=== PATIENT | female | born 1945 | race Caucasian/White ===

== ENCOUNTER → 2024-08-24 11:05 | Outpatient (BNVA) | payer MEDICARE, SELFPAY | PROVIDERS: Visit Provider Nurse Practitioner Family | DX: L57.0 Actinic keratosis (principal); L82.0 Inflamed seborrheic keratosis; L57.8 Other skin changes due to chronic exposure to nonionizing radiation | CPT/HCPCS: 17000; 17110; 99203 ==

== ENCOUNTER → 2025-04-13 14:04 | Outpatient (BNVA) | payer MEDICARE, SELFPAY | PROVIDERS: Visit Provider Nurse Practitioner Family | DX: L57.8 Other skin changes due to chronic exposure to nonionizing radiation (principal); L81.4 Other melanin hyperpigmentation; D22.39 Melanocytic nevi of other parts of face; L57.0 Actinic keratosis | CPT/HCPCS: 17000; 99213 ==

== ENCOUNTER 2025-07-27 08:54 | Emergency (ER) | payer MEDICARE, SELFPAY ==
[2025-07-27 09:13] VITALS: BP 160/85; PULSE 74; RESP 16; TEMP 36.4; O2SAT 99
--- OUTSIDE RECORDS SUMMARY | 2025-07-27 09:46 | XMS_ITS | Clinical Summary ---
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 Name Role Phone Unavailable Primary Care Provider Unavailabl e Encounters Date Type Department Care Team Description 07/13/2025 External Device Data [facility] ABSTRACTION Provider, Abstract 06/30/2025 External Device Data [facility] Provider, Abstract 06/16/2025 External Device Data [facility]CTION Provider, Abstract 05/26/2025 External Device Data [facility] AB[facility]CTION Provider, Abstract 05/26/2025 External Device Data [facility] ABSTRACTION Provider, Abstract 05/26/2025 External Device Data [facility] ABSTRACTION Provider, Abstract 04/28/2025 External Device Data [facility] ABSTRACTION Provider, Abstract 04/27/2025 External Device Data [facility] ABSTRACTION Provider, Abstract from Last 3 Months Social History Tobacco Use Types Packs/Day Years Used Date Smoking Tobacco: Never Assessed Comments Unknown Sex and Gender Information Value Date Recorded Sex Assigned at Not on file 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
[2025-07-27 09:53] LABS: Hematocrit 38.2 % (36-47); Hemoglobin 11.90 g/dL (11.27-16.99); Mean Corpuscular HGB Conc 31.2 g/dL (30-55); Mean Corpuscular Hemoglobin 30.7 pg (27-33); Mean Corpuscular Volume 98.5 fl (85-98); Nucleated Red Blood Cells % 0 %; Platelet Count 272 10^3/cmm (157-399); Red Blood Count 3.88 10^6/uL (3.85-5.65); White Blood Count 5.95 10^3/uL (3.29-11.43)
[2025-07-27 10:25] LABS: Alanine Aminotransferase 10 U/L (0-33); Albumin Level 4.3 g/dL (3.5-5.2); Alkaline Phosphatase 74 U/L (35-105); Anion Gap 20.3 (5-19); Aspartate Amino Transferase 17 U/L (0-32); Blood Urea Nitrogen 29 mg/dL (8-23); Calcium 9.9 mg/dL (8.5-10.5); Carbon Dioxide 21 mmol/L (22-29); Chloride 104 mmol/L (98-107); Globulin 3.4 g/dL (1.3-4.6); Glucose 131 mg/dL (65-115); Lipase 22 U/L (13-60); Osmolality Calculated 300 mOsm/kg (285-295); Potassium 4.3 mmol/L (3.5-5.1); Sodium 141 mmol/L (136-145); Total Protein 7.7 g/dL (6.6-8.7)
--- NOTE | 2025-07-27 12:51 | CT_ITS ---
WS: [id number] CT ABDOMEN AND PELVIS WITH CONTRAST HISTORY: llq pain r/o diverticulitis TECHNIQUE: Imaging performed of the abdomen and pelvis with IV contrast. Single phase imaging of the abdomen. Coronal and sagittal reformats are submitted. All CT scans at [facility] use at least one of these dose optimization techniques: automated exposure control; mA and/or kV adjustment per patient size (includes targeted exams where dose is matched to clinical indication); or iterative reconstruction. IV CONTRAST: Omnipaque 350; 100 mL IV. Oral contrast: No DLP: 707.91 mGy.cm COMPARISON: None available. Lower thorax: Lung bases are clear. Heart is normal size. Small hiatal hernia. Liver/biliary system: Normal size liver. Very mild central bile duct dilatation. Normal portal vein. Gallbladder: Prior cholecystectomy. Pancreas: Diffuse mild to moderate atrophy of the pancreas. Pancreatic duct is dilated to 7 mm which is normal postcholecystectomy. Spleen: Normal size spleen. No mass or infarct. Adrenal glands: Normal. Right kidney: 9.3 cm in length. Mild diffuse cortical thinning with no obstruction or mass. Left kidney: Mild renal atrophy 7.8 cm in length. Diffuse cortical thinning. No obstruction or mass. Aorta: Mild atherosclerosis with no aneurysm. Lymphadenopathy: None. Free fluid: None. GI tract: Postsurgical changes near the GE junction. No small bowel obstruction. Prior appendectomy. No colon obstruction. Mild sigmoid diverticulosis. There is a loop of descending colon extending through a defect in the aponeurosis of the transverse abdominal and internal oblique muscles. There is an intact aponeurosis of the external Bleich muscle covering the hernia sac. Within this hernia sac which is lateral to the rectus abdominous muscle is a herniating loop of 6 descending colon with fat stranding and hyperemia. Hernia segment extends over a length of 6.5 cm. The orifice is 1.8 cm. No proximal obstruction. Abdominal wall: See above. Pelvis: No free fluid or adenopathy within the pelvis. Prior hysterectomy. Bones: L4 anterolisthesis by 3 mm. Facet joint arthropathy at L4-5 and L5-S1. T12 30% compression fracture with 2 mm retropulsion. Age indeterminate fracture. CT/CT abdomen pelvis w con* [id number] IMPRESSION: 1. LEFT lower quadrant Spigelian hernia. Spigelian hernia contains omentum and a loop of colon. There is fat stranding within the hernia sac which is contain ed by the external oblique aponeurosis. 2. Mild hyperemia involving the loop of colon extending into the Spigelian her [place] along with fat stranding and edema. No proximal obstruction at this time. T here is still enhancement of the colonic wall. Recommend surgical evaluation at this time. 3. Cortical atrophy of each kidney with mild overall atrophy of the LEFT kidne y. 4. Prior cholecystectomy. 5. Prior hysterectomy. 6. Age-indeterminate 30% compression fracture T12.
[2025-07-27] MEDS: iohexol 350 mg/mL 500 mL Btl (per mL) IV (13:03)
[2025-07-27] MEDS: morphine 4 mg/mL SDV 1 mL IVP (13:44)
[2025-07-27] MEDS: ondansetron 2 mg/ML SDV 2 mL 4 MG IVP (13:45)
[2025-07-27 13:57] VITALS: PULSE 84; RESP 16; O2SAT 99
[2025-07-27 14:09] LABS: Glucose Urine UA Negative (Normal); Nitrate Urine Negative (Negative); Specific Gravity, Urine 1.023 (1.005-1.030)
[2025-07-27 14:11] LABS: Add Urine Microscopic? YES
--- NOTE | 2025-07-27 14:32 | W.ED.ABDPA2 ---
HPI - Abdominal Pain General: Chief Complaint: Abdominal Pain Stated Complaint: Lower Left abd pain Time Seen by Provider: 07/27/25 08:58 History of Present Illness: 80-year-old female history of hysterectomy in the past, history of nonspecific constipation/diarrhea treated with Linzess for suspected IBS after colonoscopy normal 1 year ago, presenting with 1 day history of left lower quadrant abdominal pain since last night, she has had intermittent left lower quadrant abdominal pain on and off times a month but has been more constant and severe over the last day, she reports nausea but no vomiting, she reports intermittent constipation and diarrhea over the last month which is more of a chronic issue for her, she has been passing flatus, she denies fever, denies urinary symptoms, denies history of kidney stone, she does not report some pain to the left flank and back as well. She denies burning dysuria frequency urgency or hematuria, denies abnormal vaginal discharge or bleeding Related Data Previous Rx's ?Medication ?Instructions ?Recorded famotidine 20 mg tablet (Pepcid) 20 mg PO BID 15 days #30 tabs 07/27/25 ibuprofen 600 mg tablet 600 mg PO Q6H PRN pain #30 tabs 07/27/25 polyethylene glycol 3350 17 gram 17 g PO DAILY 21 days #21 ea 07/27/25 oral powder packet (Miralax) Allergies Allergy/AdvReac Type Severity Reaction Status Date / Time No Known Allergies Allergy Verified 07/27/25 09:13 [facility] ED PFSH: Social History Smoking and tobacco/nicotine status: former use of tobacco/nicotine Physical Exam Narrative: EXAM NARRATIVE: Gen: A&Ox4, no acute distress, nontoxic appearing HEENT: Normocephalic, atraumatic, no scleral icterus, external ears normal, moist mucous membranes Neck: Supple, full range of motion, no observable masses Lungs: No Respiratory distress, Lungs clear to auscultation bilaterally no rales, rhonchi, wheezing CV: Regular rate and rhythm, no murmur, no pitting edema to lower extremities bilaterally Abdomen: Soft, nondistended, tender to palpation in the left lower quadrant with a small palpable mass, no overlying skin changes, irreducible MSK: No joint swelling, FROM all 4 extremities Skin: No rashes, petechiae, lesions. Normal color per patient. Neuro: Alert and oriented, no slurred speech, sensation and strength grossly intact all 4 extremities Psych: Appropriate for situation. Course Reevaluation(s): Reevaluation #1: I reassessed the patient after CT confirmed presence of an incarcerated spigelian hernia, I did attempt to manually reduce the hernia with direct palpation after analgesia, unsuccessful. Patient is tender to the region Time: 14:38 Reevaluation #2: Patient seen personally by general surgery attending, they were offered the option for admission for urgent hernia repair, at this time after speaking with their family they have elected to proceed with outpatient management, the surgeons office reports that they will refer her to a surgeon in [place] per her request and if that does not work they will personally set her up with an appointment to be seen in their clinic here locally. Patient is currently hemodynamically stable without evidence of bowel obstruction, stable for discharge on a stool softener and MiraLAX daily after discussion with general surgery. Time: 15:24 Consultations: Consultation #1: I spoke with Dr. Zhu of general surgery, he will come see the patient in the emergency department and provide recommendations. Time: 14:32 Vital Signs: Vital signs: Vital Signs Temperature 97.6 F 07/27/25 09:13 Pulse Rate 84 07/27/25 13:57 Respiratory Rate 16 07/27/25 13:57 Blood Pressure 160/85 07/27/25 09:13 Pulse Oximetry 99 07/27/25 13:57 Oxygen Delivery Me thod Room Air 07/27/25 13:57 MDM - Abdominal Pain Medical Decision Making 80-year-old female, history of nonspecific bowel symptoms treated for possible IBS, last colonoscopy a year ago, remote surgical history of a hysterectomy with a midline vertical lower abdominal incisional scar, presenting with 1 month history of intermittent/alternating constipation and diarrhea, intermittent left lower quadrant abdominal pain, constant and more severe over the last day, physical exam suggestive of an incarcerated hernia to the abdominal wall, confirmed on CT, no diverticulitis, no upstream bowel obstruction, clinically well-appearing, manual reduction attempt failed, general surgery consulted, reassess for disposition. Lab Data Labs with borderline creatinine 1.4, normal electrolytes, no leukocytosis or anemia, no UTI, lactate normal 07/27/25 09:33 07/27/25 09:33 Labs/Radiology: Radiology Impressions Abdomen/Pelvis CT 07/27/25 12:51 IMPRESSION: 1. LEFT lower quadrant Spigelian hernia. Spigelian hernia contains omentum and a loop of colon. There is fat stranding within the hernia sac which is contained by the external oblique aponeurosis. 2. Mild hyperemia involving the loop of colon extending into the Spigelian hernia along with fat stranding and edema. No proximal obstruction at this time. There is still enhancement of the colonic wall. Recommend surgical evaluation at this time. 3. Cortical atrophy of each kidney with mild overall atrophy of the LEFT kidney. 4. Prior cholecystectomy. 5. Prior hysterectomy. 6. Age-indeterminate 30% compression fracture T12. Laboratory Results WBC 5.95 10^3/uL (3.29-11.43) 07/27/25 09:33 RBC 3.88 10^6/uL (3.85-5.65) 07/27/25 09:33 Hgb 11.90 g/dL (11.27-16.99) 07/27/25 09:33 Hct 38.2 % (36-47) 07/27/25 09:33 MCV 98.5 fl (85-98) H 07/27/25 09:33 MCH 30.7 pg (27-33) 07/27/25 09:33 MCHC 31.2 g/dL (30-55) 07/27/25 09:33 RDW 13.9 % (12.1-15.1) 07/27/25 09:33 Plt Count 272 10^3/cmm (157-399) 07/27/25 09:33 MPV 9.1 fL (7.4-10.4) 07/27/25 09:33 Neut % (Auto) 64.0 % 07/27/25 09:33 Lymph % (Auto) 23.9 % 07/27/25 09:33 Vernon % (Auto) 8.1 % 07/27/25 09:33 Eos % (Auto) 3.0 % 07/27/25 09:33 Baso % (Auto) 0.7 % 07/27/25 09:33 Neut # (Auto) 3.81 10^3/uL (1.8-7.7) 07/27/25 09:33 Lymph # (Auto) 1.4 10^3/uL (0.8-4.8) 07/27/25 09:33 Vernon # (Auto) 0.5 10^3/uL (0.2-0.9) 07/27/25 09:33 Eos # (Auto) 0.2 10^3/uL (0.0-0.8) 07/27/25 09:33 Baso # (Auto) 0.0 10^3/uL (0.0-0.1) 07/27/25 09:33 Nucleated RBC % (auto) 0 % 07/27/25 09:33 Nucleated RBCs # 0.0 /100WBC 07/27/25 09:33 Sodium 141 mmol/L (136-145) 07/27/25 09:33 Potassium 4.3 mmol/L (3.5-5.1) 07/27/25 09:33 Chloride 104 mmol/L (98-107) 07/27/25 09:33 Carbon Dioxide 21 mmol/L (22-29) L 07/27/25 09:33 Anion Gap 20.3 (5-19) H 07/27/25 09:33 BUN 29 mg/dL (8-23) H 07/27/25 09:33 Creatinine 1.4 mg/dL (0.5-0.9) H 07/27/25 09:33 GFR Calculation Not Reportable 07/27/25 09:33 Glucose 131 mg/dL (65-115) H 07/27/25 09:33 Calculated Osmolality 300 mOsm/kg (285-295) H 07/27/25 09:33 Lactic Acid 0.6 mmol/L (0.5-2.2) 07/27/25 14:14 Calcium 9.9 mg/dL (8.5-10.5) 07/27/25 09:33 Total Bilirubin 0.3 mg/dL (0.15-1.2) 07/27/25 09:33 AST 17 U/L (0-32) 07/27/25 09:33 ALT 10 U/L (0-33) 07/27/25 09:33 Alkaline Phosphatase 74 U/L (35-105) 07/27/25 09:33 Total Protein 7.7 g/dL (6.6-8.7) 07/27/25 09:33 Albumin 4.3 g/dL (3.5-5.2) 07/27/25 09:33 Globulin 3.4 g/dL (1.3-4.6) 07/27/25 09:33 Lipase 22 U/L (13-60) 07/27/25 09:33 Urine Color Yellow (Yellow) 07/27/25 14:01 Urine Appearance Clear (CLEAR) 07/27/25 14:01 Urine pH 5.5 (5-7) 07/27/25 14:01 Ur Specific Dazey 1.023 (1.005-1.030) 07/27/25 14:01 Urine Protein Negative (Negative) 07/27/25 14:01 Urine Glucose (UA) Negative (Normal) 07/27/25 14:01 Urine Ketones Negative (Negative) 07/27/25 14:01 Urine Blood Negative (Negative) 07/27/25 14:01 Urine Nitrate Negative (Negative) 07/27/25 14:01 Urine Bilirubin Negative (Negative) 07/27/25 14:01 Urine Urobilinogen 0.2 mg/dL (Negative) 07/27/25 14:01 Ur Leukocyte Esterase 1+ (Negative) A 07/27/25 14:01 Urine RBC 0-2 /hpf (0-2) 07/27/25 14:01 Urine WBC 0-5 /hpf (0-5) 07/27/25 14:01 Ur Squamous Epith Cells 0-5 /hpf (0-5) 07/27/25 14:01 Amorphous Sediment Not Reportable 07/27/25 14:01 Urine Bacteria None seen /hpf (NONE) 07/27/25 14:01 Hyaline Casts 0.40 /lpf 07/27/25 14:01 All radiology interpretation(s) finalized by discharge ED provider radiology interpretation(s): CT scan showing an incarcerated spigelian hernia with associated fat stranding, no upstream bowel obstruction, no other acute findings in the abdomen Discharge Plan Discharge Patient Disposition: Home Clinical Impression: Incarcerated ventral hernia Condition: Stable Prescriptions: New polyethylene glycol 3350 [Miralax] 17 gram powder in packet 17 g PO DAILY 21 Days Qty: 21 0RF ibuprofen 600 mg tablet 600 mg PO Q6H PRN (Reason: pain) Qty: 30 0RF famotidine [Pepcid] 20 mg tablet 20 mg PO BID 15 Days Qty: 30 0RF Discharge Orders: Discharge ED (Routine); Ordered 07/27/25 Ordered By: Thierno Love Discharge Diet: Advance as tolerated Patient Instructions: Ventral Hernia (ED), Ventral Hernia Repair (DC), Patient Portal & [facility] Instructions Print Language: [place] Coding Level of Care 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
[2025-07-27 14:44] LABS: Lactic Sepsis W/Reflex 0.6 mmol/L (0.5-2.2)
--- NOTE | 2025-07-27 15:29 | P.CONIM_ITS ---
Providers/Reason For Consult 2 Consulting Physician/Specialty*: General Surgery Reason for Consult*: Incarcerated spigelian hernia History of Present Illness History of Present Illness Mikala Johnson is a 80 year old female who presents to the hospital with abdominal pain over the last 48 hours. Patient has been having intermittent abdominal pain for months but over the last 48 hours after extending his exercise the pain has become more prominent in the left lower quadrant. No Obstructive symptoms, otherwise doing well. full workup in the ER showed normal laboratory workup normal lactate level and a CT scan showed evidence of incarcerated spigelian hernia containing segment of the ascending colon I was consulted as there was finding of possible mild hyperemia of the pericolonic fat. By the moment of my evaluation patient is not having any abdominal pain and is doing well. Review of Systems 2 General: Reports: 10 or more systems reviewed and unremarkable except in HPI and below Medications/Allergies Home Medications ?Medication ?Instructions ?Recorded ?Confirmed ?Last Taken ?Type polyethylene glycol 3350 17 gram 17 g PO DAILY 21 days #21 ea 07/27/25 Unknown Rx oral powder packet (Miralax) Allergies Allergy/AdvReac Type Severity Reaction Status Date / Time No Known Allergies Allergy Verified 07/27/25 09:13 PFSH Acute 2 PFSH: Social History Smoking and tobacco/nicotine status: former use of tobacco/nicotine Vitals/I&O/Wt Last Vital Signs Temp 97.6 F 07/27/25 09:13 Pulse 84 07/27/25 13:57 Resp 16 07/27/25 13:57 BP 160/85 07/27/25 09:13 Pulse Ox 99 07/27/25 13:57 O2 Del Method Room Air 07/27/25 13:57 Weight last 48 hrs Weight 165 lb Physical Exam 2 GI: OTHER: Benign abdominal exam abdomen soft nontender nondistended, I feel slight bulging of the left Bridger abdomen but I cannot really feel the specific area of defect of the spigelian hernia Data 07/27/25 09:33 07/27/25 09:33 A&P Assessment and plan 1. Irreducible Spigelian hernia: Plan: is a 80-year-old female with history of chronic kidney disease who presents with abdominal pain and is found to have an incarcerated spigelian hernia on imaging. No obstructive symptoms, laboratory work up and vital signs are completely unremarkable, there is a normal lactate level, imaging findings are consistent more with an incarcerated hernia rather than strangulation or bowel compromise. I have discussed the findings with the patient and family members I have given them the option of possible surgical respire during this presentation I have also discussed the possibility of going home with warning signs and returning in case of worsening symptoms, after discussion of all risks and benefits of the operation that included a laparoscopic possible open repair of a spigelian hernia the patient and family member have decided on a watchful waiting approach and to obtain a referral for robotic repair of the spigelian hernia. I think at this point in time this is a suitable approach as patient does not shows any symptoms concerning for obstruction or strangulation. I have given them warning signs and asked them to return immediately to the ER in the case of fever chills severe abdominal pain is worsening over time obstipation nausea or vomiting. I have also Explained that while I think is reasonable for ahort period of Waiting I think this hernia should be fix in the near future to prevent obstructive complication or bowel compromise. Patient family members are agree. With the plan, the plan was also discussed with ER physician. I have also discussed with my office and we will be providing the patient with a referral to a robotic surgeon to consider repair PDMP PDMP Reviewed: Not Reviewed Coding Level of Care Code Acute Code for Chg Fwd Diagnoses Irreducible Spigelian hernia K43.6
[2025-07-27 15:39] VITALS: BP 125/84; PULSE 74; RESP 16; O2SAT 98
== END 2025-07-27 15:39 | disposition home or self-care (01) ==
PROVIDERS: Family Medicine; Emergency Provider Student in an Organized Health Care Education/Training Program
DX: K43.9 Ventral hernia without obstruction or gangrene (principal); Z87.891 Personal history of nicotine dependence
CPT/HCPCS: 36415; 74177; 80053; 81001; 83605; 83690; 85025; 96361; 96374; 96375; 99285; J1885; J2270; J2405; J7030

== ENCOUNTER → 2025-10-27 15:33 | Outpatient (BNVA) | payer MEDICARE, SELFPAY | PROVIDERS: Visit Provider Nurse Practitioner Family | DX: L57.8 Other skin changes due to chronic exposure to nonionizing radiation (principal); L81.4 Other melanin hyperpigmentation; L82.1 Other seborrheic keratosis; D22.39 Melanocytic nevi of other parts of face; L57.0 Actinic keratosis | CPT/HCPCS: 17000; 99213 ==